=== PATIENT | male | born 2000 | race Caucasian/White ===

== ENCOUNTER 2018-06-19 01:26 | Emergency (ER) | payer OTHER ==
[~2018-06-19] VITALS: Ht 147.3 cm; Wt 34.0 kg
[~2018-06-19 01:26] MED LIST: CEPH500 PO; CHOL10002 PO; CODACE30 PO; FLUO10 PO; HYDCOR10 PO; LEVSOD25 PO; SULTRIDS PO; TOCO400 PO; VIT D3 PO; [UNRECOGNIZED DRUG - OTHER]; [UNRECOGNIZED DRUG - OTHER] PO
[2018-06-19] MEDS ORDERED: NORDITROPI5 MG/1.5 M SQ (01:42)
== END 2018-06-19 02:51 | disposition home or self-care (01) ==
LOC: ER 01:26
DX: R07.89 Other chest pain (principal); Z88.8 Allergy status to other drugs, medicaments and biological substances; Z79.899 Other long term (current) drug therapy
CPT/HCPCS: 74018; 99283-25

== ENCOUNTER 2018-12-01 12:16 | Emergency (ER) | payer OTHER ==
[~2018-12-01] VITALS: Ht 149.9 cm; Wt 34.0 kg
[~2018-12-01 12:16] MED LIST changes: +NORDITROPI5 MG/1.5 M SQ
== END 2018-12-01 15:03 | disposition home or self-care (01) ==
LOC: ER 12:16
DX: T82.848A Pain due to vascular prosthetic devices, implants and grafts, initial encounter (principal); R07.89 Other chest pain; S29.9XXA Unspecified injury of thorax, initial encounter; Z88.8 Allergy status to other drugs, medicaments and biological substances; Z79.899 Other long term (current) drug therapy; X58.XXXA Exposure to other specified factors, initial encounter
CPT/HCPCS: 36415; 71046; 93005; 93010; 99285-25

== ENCOUNTER 2023-07-02 13:21 | Emergency (ER) | payer OTHER ==
[~2023-07-02] VITALS: Ht 149.9 cm; Wt 50.4 kg
[2023-07-02 13:24] VITALS: BP 128/89
[2023-07-02 13:48] LABS: BASOPHILS ABSOLUTE AUTO 0.07 K/mm3 (0.00-0.23); BASOPHILS PERCENT AUTO 1 % (0-2); EOSINOPHILS ABSOLUTE AUTO 0.09 K/mm3 (0.00-0.68); EOSINOPHILS PERCENT AUTO 1 % (0-6); Hematocrit 48.9 % (37.0-53.0); Hemoglobin 17.5 g/dL (13.5-17.5); IMMATURE GRAN ABSOLUTE AUTO 0.04 K/mm3 (0.00-0.10); IMMATURE GRAN PERCENT AUTO 0 % (0-1); LYMPHOCYTES ABSOLUTE AUTO 3.27 K/mm3 (0.84-5.20); LYMPHOCYTES PERCENT AUTO 31 % (21-46); MONOCYTES ABSOLUTE AUTO 0.98 K/mm3 (0.16-1.47); MONOCYTES PERCENT AUTO 9 % (4-13); Mean Corpuscular HGB 31.5 pg (26.0-34.0); Mean Corpuscular HGB Conc 35.8 g/dL (31.5-36.5); Mean Corpuscular Volume 88 fL (80-100); Mean Platelet Volume 10.2 fL (9.1-12.4); NEUTROPHILS ABSOLUTE AUTO 6.27 K/mm3 (1.96-9.15); NEUTROPHILS PERCENT AUTO 59 % (41-73); Platelet Count 240 K/mm3 (150-400); RDW Coefficient Variation 11.9 % (11.7-14.2); RDW Standard Deviation 38.4 fL (35.1-46.3); Red Blood Cell Count 5.56 M/mm3 (4.30-5.90); White Blood Cell Count 10.72 K/mm3 (4.00-11.30)
[2023-07-02 14:04] LABS: Albumin, Blood 3.9 g/dL (3.4-5.0); Albumin/Globulin Ratio 1.1 (0.8-1.8); Bilirubin, Total 0.3 mg/dL (0.1-1.0); Bun/Creatinine Ratio 13.8 (12.0-20.0); Calcium, Blood 9.5 mg/dL (8.5-10.1); Creatinine, Blood 0.72 mg/dL (0.60-1.20); Globulin, Blood 3.6 g/dL (2.2-4.0); Potassium, Blood 3.6 mmol/L (3.5-5.5); Total Protein, Blood 7.5 g/dL (6.4-8.2)
== END 2023-07-02 17:36 | disposition home or self-care (01) ==
LOC: ER 13:21
PROVIDERS: Physician Assistant
DX: R00.2 Palpitations (principal); C71.9 Malignant neoplasm of brain, unspecified; Z86.73 Personal history of transient ischemic attack (TIA), and cerebral infarction without residual deficits; Z79.899 Other long term (current) drug therapy; Z88.8 Allergy status to other drugs, medicaments and biological substances
CPT/HCPCS: 71046; 80053; 84484; 85025; 93005; 93010; 99285-25